=== PATIENT | male | born 1985 | race Caucasian/White ===

== ENCOUNTER 2017-01-19 17:18 | Inpatient (IN) | payer OTHER ==
--- NOTE | ~2017-01-19 | PN ---
Unit #: [id number] #: [id number] Patient: SILVERIO ACOSTA [id number] [facility] [address] [place] [address] [id number] MR#: [id number] NAME: SILVERIO ACOSTA. ROOM: P184 Age: 31 Sex: M Admission Date: 01/19/2017 : 1985 Attending Physician: Rajiv Olvera M.D. Admitting Physician: Rajiv Olvera M.D. Primary Care Physician: Generic Doctor Not In System [facility] PROGRESS NOTES DATE 01/21/2017. DISCUSSION Silverio continues to have irritability and mild detox symptomatology. He is attending groups and activities and denies any adverse side effects so far. He is compliant with Dilantin. He continues to report some suicidal ideation if released from the hospital at this time. He again reiterates his desire to go to a long-term care facility. ASSESSMENT Opiate dependence. Polysubstance dependence. PLAN Continue current treatment plan. Dictated by... Rajiv Olvera M.D. SHAYNA/janice TD: 01/22/2017 13:08 JOB #: [id number] [facility] PROGRESS NOTES Page 1 of 1 X Rajiv Olvera MD PROGRESS NOTE
--- NOTE | ~2017-01-19 | PN ---
Unit #: [id number] #: [id number] Patient: SILVERIO ACOSTA [id number] [facility] [address] [place] [address] [id number] I MR#: [id number] NAME: SILVERIO ACOSTA. ROOM: P184 Age: 31 Sex: M Admission Date: 01/19/2017 : 1985 Attending Physician: Rajiv Olvera M.D. Admitting Physician: Rajiv Olvera M.D. Primary Care Physician: Generic Doctor Not In System [facility] PROGRESS NOTES DATE 01/22/2017 DISCUSSION Silverio continues to be somewhat intrusive and irritable with peers and staff on the unit. He is attending groups and activities but his insight remains superficial. He is alert and fully oriented. Memory and concentration are fair. Thought processes are goal directed with no active psychosis. He continues to report suicidal ideation. ASSESSMENT Polysubstance attendance. PLAN We will provide Seroquel as needed for insomnia and continue with detox protocol. Dictated by... Rajiv Olvera M.D. [facility]/britton TD: 01/28/2017 10:23 JOB #: [id number] [facility] PROGRESS NOTES Page 1 of 1 X Rajiv Olvera MD PROGRESS NOTE
--- NOTE | ~2017-01-19 | HP ---
Unit #: [id number] #: [id number] Patient: SILVERIO ACOSTA [id number] [place] [address] [id number] I MR#: [id number] NAME: SILVERIO ACOSTA. ROOM: P171 Age: 31 Sex: M Admission Date: 01/19/2017 : 1985 Attending Physician: Rajiv Olvera M.D. Admitting Physician: Rajiv Olvera M.D. Primary Care Physician: Generic Doctor Not In System HISTORY AND PHYSICAL HISTORY OF PRESENT ILLNESS Silverio is a 31-year-old male admitted on 01/19/2017 to [facility] for detox from heroin, ice and spice. PAST MEDICAL HISTORY None. PAST SURGICAL HISTORY None. SOCIAL HISTORY Smokes two packs of cigarettes daily and denies any alcohol use does report daily use of heroin, ice and spice. He is currently and living alone. FAMILY HISTORY Noncontributory. REVIEW OF SYSTEMS CONSTITUTIONAL: No fever or chills. HEENT: Denies any sore throat, ear pain or runny nose. CARDIOVASCULAR: Denies chest pain, irregular heart rhythm or palpitations. CHEST: Denies shortness of breath or cough. No hemoptysis. GASTROINTESTINAL: Denies nausea, vomiting, diarrhea or chronic constipation. ENDOCRINE: Denies history of increased thirst or urination. No recent significant weight loss or gain. GENITOURINARY: Denies dysuria, frequency, or hematuria. SKIN: Denies any rashes. HEMATOLOGIC: Denies history of increased bleeding or bruising. MUSCULOSKELETAL: Denies any hot, swollen joints. No generalized muscle pain. NEUROLOGIC: Denies problems with vision or speech. No frequent, severe headaches. No numbness, tingling or weakness in any extremities. Denies loss of bladder or bowel control. CURRENT MEDICATIONS 1. Dilantin 2. Trazodone ALLERGIES Unit #: [id number] #: [id number] Patient: SILVERIO ACOSTA Penicillins PHYSICAL EXAMINATION GENERAL: Alert, oriented, in no acute distress. VITAL SIGNS: Blood pressure 120/79, heart rate 71, respirations 16. HEIGHT: 6 foot 3 inches. WEIGHT: 222 pounds. SKIN: Warm and dry without rash or lesion. HEENT: Normocephalic. TMs not viewed. Oral and nasal passages clear. Conjunctivae clear. PERRLA. EOMs intact. NECK: Supple without lymphadenopathy or thyromegaly. HEART: Regular rate and rhythm without murmur. LUNGS: Clear. ABDOMEN: Soft, nontender, without masses or hepatosplenomegaly. : Not done. EXTREMITIES: No evidence of cyanosis, clubbing or edema. Moves all without focal deficit. NEUROLOGICAL: Grossly within normal limits. Cranial Nerves: II: Visual [place] are intact. III, IV AND : Extraocular movements are intact. Pupils are equal, round and reactive to light. V: Facial sensation is grossly normal. VII: Facial movements and expression are normal. VIII: Auditory acuity grossly intact. IX, X: Uvula is midline. Phonation is normal. XI: Patient shrugs shoulders and turns head normally. XII: Tongue protrudes in the midline. Sensory and Motor Function: Sensory and motor sensation is grossly normal. Motor: moves all extremities well. Coordination: Gait is normal. Deep Tendon Reflexes: Intact. IMPRESSION Psychiatric admission. RECOMMENDATIONS Psychiatric, per psychiatrist. MEDICAL: I see no contraindications to participating in facility's activities. MEDICAL PROGNOSIS Good. MEDICAL CONDITION Stable. Dictated by... Tayo Hartman/omer TD: 01/20/2017 19:25 JOB #: [id number] Unit #: [id number] #: [id number] Patient: SILVERIO ACOSTA HISTORY AND PHYSICAL Page 1 of 1 X ZI GALICIA APRN HISTORY AND PHYSICAL
--- NOTE | ~2017-01-19 | DS ---
Unit #: [id number] #: [id number] Patient: SILVERIO ACOSTA [id number] [facility] [address] [place] [address] [id number] I MR#: [id number] NAME: SILVERIO ACOSTA. ROOM: P184 Age: 31 Sex: M Admission Date: 01/19/2017 : 1985 Discharge Date: 01/24/2017 Attending Physician: Rajiv Olvera M.D. Primary Care Physician: Generic Doctor Not In System DISCHARGE SUMMARY REASON FOR ADMISSION Silverio is a 31-year-old man with a history of polysubstance dependence, who reported that he had relapsed on heroin, "ice," and "spice." He had suicidal ideation and could not contract for safety. He was admitted for stabilization. HOSPITAL COURSE Silverio was admitted and placed on suicide precautions and the opioid detox protocol. Dilantin was restarted and trazodone provided temporarily for insomnia. He was generally cooperative with some irritable mood, but no further suicidal ideation, intent, or plan after admission. Seroquel was also added for insomnia, which was more successful. On the date of discharge, he had established sobriety and was able to contract for safety. 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 AXIS III: History of hypertension, currently untreated. AXIS IV: AXIS V: DISCHARGE INSTRUCTIONS Follow up with long-term care facility as arranged by the unit addiction social worker. DISCHARGE MEDICATIONS Dilantin 100 mg b.i.d. for seizures and Seroquel 100 mg at bedtime for sleep. CONDITION AT DISCHARGE Fair. PROGNOSIS Fair. DIET AND ACTIVITY Ad roberto. Dictated by... Rajiv Olvera M.D. Unit #: [id number] #: [id number] Patient: SILVERIO ACOSTA MR/luisl TD: 03/19/2017 01:37 JOB #: [id number] DISCHARGE SUMMARY Page 1 of 1 X Rajiv Olvera MD DISCHARGE SUMMARY
--- NOTE | ~2017-01-19 | PA ---
Unit #: [id number] #: [id number] Patient: SILVERIO GASTON [id number] [place] [address] [id number] I MR#: [id number] NAME: SILVERIO GASTON. ROOM: 84 Age: 31 Sex: M Admission Date: 01/19/2017 : 1985 Date of Assessment: 01/20/2017 Attending Physician: Rajiv Olvera M.D. Admitting Physician: Rajiv Olvera M.D. Primary Care Physician: Generic Doctor Not In System PSYCHIATRIC ASSESSMENT DATE OF ASSESSMENT 01/20/2017 INFORMANTS Patient, partially reliable. OLOP, reliable. CHIEF COMPLAINT Suicidal ideation and drug use. HISTORY OF PRESENT ILLNESS Silverio Gaston is a 31-year-old man with multiple admissions to this facility, who reports he has been using heroin "ice," and "spice." He had thoughts of walking in front of a car this morning and could not help himself. He was unable to contract for safety and was admitted for further detox and stabilization. PAST PSYCHIATRIC HISTORY Last admission in this facility was in 11/2016 under similar circumstances. At that time, he was discharged on Dilantin for seizures, but no psychiatric medications. FAMILY PSYCHIATRIC HISTORY The patient denies family history of mental illness or substance abuse. SOCIAL HISTORY The patient is a high school graduate with a history of mental retardation. He is currently unemployed and is estranged from his family. He is erratically homeless. He has minimal psychosocial support otherwise. PAST MEDICAL HISTORY No chronic medical problems. MEDICATIONS None currently. ALLERGIES Penicillin. SUBSTANCE USE HISTORY The patient has been using opioids and artificial stimulants as noted above including methamphetamines. MENTAL STATUS EXAMINATION Unit #: [id number] #: [id number] Patient: SILVERIO GASTON presented as a mildly disheveled man with heavily tattooed skin. He stood 6 feet 3 inches tall, weighing 222 pounds. Vital signs; temperature 97.7, pulse 87, respirations 18, and blood pressure 107/67. His speech was spontaneous, mildly overinclusive, but easily understood. Musculoskeletal examination demonstrated mild psychomotor agitation. His mood was irritable with a congruent affect. He was alert and fully oriented. His memory and concentration were fair. His thought processes were goal directed and concrete, but nonpsychotic. He reported suicidal ideation with the above plan and could not contract for safety outside of the hospital. His insight and judgment were fair. His fund of knowledge and abstraction were fair. ASSETS AND LIABILITIES The patient is familiar with local resources and presents voluntarily for treatment. Liabilities include difficulty maintaining sobriety, unemployment, homelessness. ADMITTING DIAGNOSES AXIS I: Opioid dependence, F11.23. Amphetamine abuse. AXIS II: Mild mental retardation. AXIS III: History of hypertension. AXIS IV: AXIS V: PSYCHIATRIC PLAN Silverio was admitted and placed on suicide precautions and the opioid detox protocol. His Dilantin will be restarted, and he will have physical examination and baseline laboratory studies. TREATMENT GOALS Establishment of sobriety, improvement in insight, and improvement in coping skills. DISCHARGE PLANNING Follow up with community mental health and possibly referred to a long-term care facility. ESTIMATED LENGTH OF STAY 5 days. Dictated by... Rajiv Olvera M.D. SHAYNA/dana TD: 01/22/2017 06:29 JOB #: [id number] Unit #: [id number] #: [id number] Patient: SILVERIO GASTON PSYCHIATRIC ASSESSMENT Page 1 of 1 X Rajiv Olvera MD X PSYCHIATRIC ASSESSMENT
[~2017-01-19 17:18] MED LIST: ALLERGY RELIEF4 M1 PO; ANTIBIOTIC; BACTRIM DS TABL1 TA1 PO; BACTROBAN22 GM TP; CLEOCIN HCL300 M1 PO; CLEOCIN PO; IBUPROFEN PO; KETOPROFEN PO; NAPROXEN PO; NO MEDICATIONS; ORUDIS75 M1 DOB; PEN-VEE K PO; PHENERGAN DM1 ML PO; PHENERGAN PO; PHENERGAN25 MG PO; ULTRAM PO; VICODIN PO; VOLTAREN75 MG PO; ZANTAC150 MG PO; ZITHROMAX PO; ZITHROMAX1 G/PKT PO
[2017-01-20 11:52] LABS: BASOPHIL# 0.1 X10e3 (0-0.3); BASOPHIL% 0.8 % (0-2.5); EOSINOPHIL# 0.3 X10e3 (0-0.7); EOSINOPHIL% 3.2 % (0.0-7.0); HEMATOCRIT 38.4 % (38.0-50.0); LYMPHOCYTE# 2.7 X10e3 (1.0-3.5); LYMPHOCYTE% 33.3 % (17.0-45.0); MEAN CELL VOLUME 88.7 FL (83-96); MEAN CORPUSCULAR HEMOGLOBIN 30.1 PG (28-34); MEAN PLATELET VOLUME 8.3 FL (6.5-11.5); MONOCYTE# 0.6 X10e3 (0-1.0); MONOCYTE% 6.9 % (3.0-12.0); NEUTROPHIL# 4.5 X10e3 (1.5-7.1); NEUTROPHIL% 55.8 % (40-75); PLATELET COUNT 269 X10e3 (140-420); RED BLOOD COUNT 4.33 X10e (3.90-5.60); RED CELL DISTRIBUTION WIDTH 13.4 % (11.0-15.5); WHITE BLOOD COUNT 8.1 X10e3 (4.0-10.5)
[2017-01-20 11:58] LABS: DIFF IND NO
[2017-01-20 12:01] LABS: ALBUMIN SERUM 3.7 g/dL (3.5-5.0); ALKALINE PHOSPHATASE 89 U/L (32-92); ALT (SGPT) 15 U/L (10-40); AST (SGOT) 16 U/L (10-42); BILIRUBIN,TOTAL 0.3 mg/dL (0.2-2.0); BLOOD UREA NITROGEN 18 mg/dL (9-23); CALCIUM SERUM 8.4 mg/dL (8.4-10.2); CARBON DIOXIDE 27 mmol/L (22-31); CHLORIDE 104 mmol/L (100-111); CREATININE SERUM 0.8 mg/dL (0.6-1.4); DILANTIN (PHENYTOIN) <2.5 ug/mL (10.0-20.0); GLOM FILT RATE Estimated 120.8 mL/min (>60); GLUCOSE FASTING 86 mg/dL (70-110); POTASSIUM 4.1 mmol/L (3.5-5.1); PROTEIN TOTAL SERUM 5.8 g/dL (6.0-8.3); SODIUM 138 mmol/L (135-145)
== END 2017-01-24 17:45 | disposition home or self-care (01) | DRG 897 ==
LOC: P1E 17:18
PROVIDERS: Psychiatry & Neurology Psychiatry
PROC: HZ2ZZZZ Detoxification Services for Substance Abuse Treatment (ICD-10-PCS; principal; 2017-01-20)
DX: F11.23 Opioid dependence with withdrawal (principal); I10 Essential (primary) hypertension; F15.10 Other stimulant abuse, uncomplicated; F70 Mild intellectual disabilities; F17.210 Nicotine dependence, cigarettes, uncomplicated; Z88.0 Allergy status to penicillin
CPT/HCPCS: 80053; 80185; 85025; 86592